=== PATIENT | female | born 1945 ===

== ENCOUNTER → 2017-12-28 | Outpatient (CLI) | payer OTHER, MEDICARE ==
[~2017-12-28] MED LIST: IOPAMIDOL (ISOVUE-300) 100 ML BTL ONE
== END ==
LOC: CIMAGING 11:00
PROVIDERS: ATTEND Family Medicine
DX: R91.8 Other nonspecific abnormal finding of lung field (principal)
CPT/HCPCS: 71260; Q9967

== ENCOUNTER 2018-02-04 05:44 | Inpatient (IN) | payer OTHER, MEDICARE ==
[2018-02-04] MEDS ORDERED: ceFAZolin 2 GM/DEXTROSE 100 ML IV ONE (05:52)
[2018-02-04] MEDS ORDERED: LR 1,000 ML IV ONE (05:53)
[2018-02-04] MEDS ORDERED: LIDOCAINE 1% 2 ML INJ ID PRN (05:53)
--- NOTE | 2018-02-04 06:44 | PDGENHP ---
History and Physical - Chief Complaint lung mass - History of Present Illness 72 yo female with a 3 x 4 cm PET avid left lower lobe lung mass admitted for elective resection. Mass an incidental discovery during abdominal workup for flank pains assoc with a UTI. PFTs preserved. No evidence of metastatic disease. No hx of smoking or unusual occupational exposures. She notices left sided flank pressure during yoga stretches but otherwise feels as healthy as ever. Wt has been stable. No cough or any residual irritative urinary symptoms. History Information - Allergies/Home Medication List Allergies/Adverse Reactions: No Known Allergies Allergy (Verified 01/25/18 10:12) Home Medications: Cholecalciferol Vit D3 [Vitamin D3 (*)] 5,000 units PO DAILY 01/25/18 [Last Taken Unknown] Compounded Estrogen 1 each SL BID 01/25/18 [Last Taken Unknown] Compounded Progesterone 1 each SL BID 01/25/18 [Last Taken Unknown] Compounded Testoserone 1 each SL BID 01/25/18 [Last Taken Unknown] Herbals/Supplements -Info Only 1 ea PO DAILY 01/25/18 [Last Taken Unknown] Vitamin B Complex [Vitamin B Complex (OTC)] 1 each PO DAILY 01/25/18 [Last Taken Unknown] Fish Oil [place]-3 Softgel 01/30/18 [Last Taken Unknown] I have personally reviewed and updated: medical history, social history, surgical history - Past Medical History no pertinent PMH - Surgical History Additional surgical history: breast biopsy - Social History Smoking Status: Never smoked Review of Systems Review of Systems: ROS: 10pt was reviewed & negative except for what was stated in HPI & below Physical Exam Physical Exam: Temp Pulse Resp BP Pulse Ox 36.6 C 64 16 126/77 H 96 02/04/18 06:08 02/04/18 06:08 02/04/18 06:08 02/04/18 06:08 02/04/18 06:08 Constitutional: no apparent distress, appears nourished Eyes: anicteric sclera, other (PER) Ears, Nose, Mouth, Throat: moist mucous membranes, hearing normal Cardiovascular: regular rate and rhythym Respiratory: no respiratory distress Gastrointestinal: soft, non-tender abdomen Genitourinary: no bladder fullness Skin: warm, normal color Musculoskeletal: other (symmetric tone) Neurologic: AAOx3 Psychiatric: interacting appropriately, not anxious Lab Data & Imaging Review Patient ABO/Rh O POSITIVE 01/30/18 17:00 Antibody Screen NEGATIVE 01/30/18 17:00 Imaging Review: CT chest, PET scan, PFTs Visualized and Interpreted imaging results: Yes Assessment & Plan Assessment: Left lower lobe pulmonary mass concerning for malignancy Plan: Left mini thoracotomy with lower lobe resection (extent dictated by path)
[2018-02-04] MEDS ORDERED: BUPIVACAINE/EPI 0.25% 30 ML SDV ONE ×2 (07:00→07:04)
--- NOTE | 2018-02-04 07:01 | PDANEPAE ---
ANE History of Present Illness 72 yo for LLL mass excision ANE Past Medical History - Cardiovascular History Hx Hypertension: No Hx Arrhythmias: No Hx Chest Pain: No Hx Coronary Artery / Peripheral Vascular Disease: No Hx CHF / Valvular Disease: No Hx Palpitations: No - Pulmonary History Hx COPD: No Hx Asthma/Reactive Airway Disease: No Hx Recent Upper Respiratory Infection: No Hx Oxygen in Use at Home: No Hx Sleep Apnea: No Sleep Apnea Screening Result - Last Documented: Negative Pulmonary History Comment: LLL lung mass - no symptoms - Neurologic History Hx Cerebrovascular Accident: No Hx Seizures: No Hx Dementia: No - Endocrine History Hx Diabetes: No - Renal History Hx Renal Disorders: No Renal History Comment: hx of UTI - Liver History Hx Hepatic Disorders: No - Neurological & Psychiatric Hx Hx Neurological and Psychiatric Disorders: No - Cancer History Hx Cancer: No - Congenital Disorder History Hx Congenital Disorders: No - GI History Hx Gastrointestinal Disorders: No - Other Health History Other Health History: wears glasses. had fractured skull as a small child - Chronic Pain History Chronic Pain: No - Surgical History Prior Surgeries: knee scope, 1984. breast bx, age 26. tonsillectomy ANE Review of Systems Review of Systems: - Exercise capacity METS (RN): 5 METS ANE Patient History - Allergies Allergies/Adverse Reactions: No Known Allergies Allergy (Verified 01/25/18 10:12) - Home Medications Home medications: home medication list seen and reviewed Home Medications: Cholecalciferol Vit D3 [Vitamin D3 (*)] 5,000 units PO DAILY 01/25/18 [Last Taken Unknown] Compounded Estrogen 1 each SL BID 01/25/18 [Last Taken Unknown] Compounded Progesterone 1 each SL BID 01/25/18 [Last Taken Unknown] Compounded Testoserone 1 each SL BID 01/25/18 [Last Taken Unknown] Herbals/Supplements -Info Only 1 ea PO DAILY 01/25/18 [Last Taken Unknown] Vitamin B Complex [Vitamin B Complex (OTC)] 1 each PO DAILY 01/25/18 [Last Taken Unknown] Fish Oil [place]-3 Softgel 01/30/18 [Last Taken Unknown] - NPO status NPO Status: no food or drink >8 hours NPO Since - Liquids (Date): 02/04/18 NPO Since - Liquids (Time): 00:30 NPO Since - Solids (Date): 02/03/18 NPO Since - Solids (Time): 19:00 - Smoking Hx Smoking Status: Never smoked - Family Anes Hx Family Hx Anesthesia Complications: none ANE Labs/Vital Signs - Vital Signs Blood Pressure: 126/77 Heart Rate: 64 Respiratory Rate: 16 O2 Sat (%): 96 Height: 5 ft 3 in Weight: 53.07 kg ANE Physical Exam - Airway Neck exam: FROM Mallampati Score: Class 2 Mouth exam: normal dental/mouth exam - Pulmonary Pulmonary: no respiratory distress - Cardiovascular Cardiovascular: regular rate and rhythym - ASA Status ASA Status: II ANE Anesthesia Plan Anesthesia Plan: general endotracheal anesthesia Lines/Monitors: arterial line Specialized Airway: double lumen tube (pt refuses CTE)
[2018-02-04] MEDS ORDERED: MIDAZOLAM 2 MG/2 ML VIAL IVP ONE (07:02)
[2018-02-04] MEDS ORDERED: MIDAZOLAM 2 MG/2 ML VIAL ONE (07:05)
[2018-02-04] MEDS ORDERED: ROCURONIUM 100 MG/10 ML VIAL ONE (07:11)
[2018-02-04] MEDS ORDERED: DEXAMETHASONE 4 MG/ML VIAL ONE (07:11)
[2018-02-04] MEDS ORDERED: fentaNYL 250 MCG/5 ML INJ ONE (07:12)
[2018-02-04] MEDS ORDERED: PROPOFOL/EMULSION 500 MG/50 ML BOTTLE IV ONE ×2 (07:12→08:28)
[2018-02-04] MEDS ORDERED: HYDROmorphONE/DILAUDID 2 MG/ML INJ ONE (08:11)
[2018-02-04] MEDS ORDERED: ONDANSETRON 4 MG/2 ML VIAL ONE ×2 (08:45→09:46)
[2018-02-04] MEDS ORDERED: SUGAMMADEX SODIUM 200 MG/2 ML VIAL IVP ONE (08:45)
[2018-02-04] MEDS ORDERED: PROMETHAZINE HCL 25 MG/ML INJ IVP PRN (09:22)
[2018-02-04] MEDS ORDERED: ONDANSETRON 4 MG/2 ML VIAL IVP PRN (09:22)
[2018-02-04] MEDS ORDERED: fentaNYL 100 MCG/2 ML INJ IVP PRN (09:22)
[2018-02-04] MEDS ORDERED: HYDROmorphONE/DILAUDID 2 MG/ML INJ IVP PRN (09:22)
[2018-02-04] MEDS ORDERED: ALBUTEROL 3 ML DEYVIAL IH PRN (09:22)
[2018-02-04] MEDS ORDERED: NALOXONE HCL 0.4 MG/ML INJ IVP PRN (09:22)
[2018-02-04] MEDS ORDERED: MAGNESIUM HYDROXIDE 30 ML UDCUP PO PRN (09:52)
[2018-02-04] MEDS ORDERED: LACTULOSE 20 GM/30 ML UDCUP PO PRN (09:52)
[2018-02-04] MEDS ORDERED: POLYETHYLENE GLYCOL 3350 17 GM PKT PO PRN (09:52)
--- NOTE | 2018-02-04 09:52 | PDMN ---
Medical Necessity Medical necessity: 72 yo s/p MCG S800 Lobectomy, lung: thoracotomy left lower lobectomy and lymph node dissection, MC IP only
--- NOTE | 2018-02-04 09:52 | POSTANESTH ---
Post Anesthetic Evaluation Cardiovascular Status: Normal, Stable Respiratory Status: Tx Decrease in SpO2 Level of Consciousness/Mental Status: Alert and Oriented Pain Control: Adequate, Prn Tx Ordered Nausea/Vomiting Control: Adequate, Prn Tx Ordered Complications Possibly Related to Anesthesia: None Noted
--- NOTE | 2018-02-04 09:59 | POSTOPPROG ---
Post Op Note Date of Operation: 02/04/18 Surgeon: Tani Perez Assistant: Tara Cortez Anesthesiologist: Codie Anesthesia: GET(General Endotracheal) Pre-op Diagnosis: left lung mass Post-op Diagnosis: left lung mass, possible carcinoid Indication: suspected malignancy Procedure: left mini thoracotomy, left lower lobectomy with LN sampling Inf/Abcess present in the surg proc area at time of surgery?: No EBL: Minimal Drains: Other (28 Fr chest tube) Specimen(s): left lower lobe and multiple regional lymph nodes
[2018-02-04] MEDS ORDERED: fentaNYL 100 MCG/2 ML INJ ONE (10:42)
[2018-02-04] MEDS: KETOROLAC 15 MG/1 ML SDV IVP SCH ×3 (11:06→23:35)
[2018-02-04] MEDS ORDERED: hydrALAZINE 20 MG/ML VIAL IVP PRN (11:07)
[2018-02-04] MEDS ORDERED: METOPROLOL TARTRATE 25 MG TAB PO ONE (11:30)
[2018-02-04] MEDS: ACETAMINOPHEN 325 MG TAB PO SCH ×3 (11:56→23:35)
[2018-02-04] MEDS ORDERED: traMADol 50 MG TAB PO PRN (12:00)
[2018-02-04] MEDS: ceFAZolin 2 GM/DEXTROSE 100 ML IV SCH ×2 (13:57→20:54)
[2018-02-04] MEDS: oxyCODONE IR 5 MG TAB PO PRN ×2 (15:59→20:03)
[2018-02-04] MEDS: ONDANSETRON 4 MG/2 ML VIAL IVP PRN ×2 (16:03→20:02)
[2018-02-04] MEDS: SENNOSIDES/DOCUSATE SODIUM TAB PO SCH (20:02)
[2018-02-04] MEDS: SODIUM CL NASAL 45 ML BTL EACHNARE SCH (20:03)
[2018-02-05] MEDS: ONDANSETRON 4 MG/2 ML VIAL IVP PRN (02:19)
[2018-02-05] MEDS: oxyCODONE IR 5 MG TAB PO PRN ×5 (02:20→23:10)
[2018-02-05] MEDS: ACETAMINOPHEN 325 MG TAB PO SCH ×3 (06:21→17:01)
[2018-02-05] MEDS: KETOROLAC 15 MG/1 ML SDV IVP SCH ×3 (06:21→17:40)
--- NOTE | 2018-02-05 07:08 | SOAPPROG ---
SOAP Progress Note Assessment/Plan: Assessment: POD#1 left mini thoracotomy, left lower lobectomy w LN sampling LLL mass - Suspicious for malignancy and fully resected by lower lobectomy. Await path. Uncomplicated early postop course. Expected volume loss. No air leak. Dissipating CTOP. Adequate pain control w multimodal analgesia. Plan: Pleurovac to waterseal Consider CT removal later today Inc mobility Tx to PCU Dispo - Anticipate home without services tomorrow 02/05/18 07:04 Subjective: Better than yest. OOB last night. Walked to this am. Hopeful for tube out soon. Objective: Vital Signs Temp Pulse Resp BP Pulse Ox 36.9 C 69 20 127/62 H 97 02/04/18 20:00 02/05/18 06:00 02/05/18 06:00 02/05/18 06:00 02/05/18 06:00 Laboratory Results 02/05/18 05:30 02/05/18 05:30 02/04/18 02/05/18 02/06/18 05:59 05:59 05:59 Intake Total 2380 Output Total 1365 Balance 1015 Afeb. VSS. Weaned to room air CXR -> small air space left apex, no undrained effusion CTOP nearing removal criteria Labs as expected Physical Exam - Physical Exam General Appearance: alert, no apparent distress Respiratory: lungs clear (grossly), other (Left thoracot CDI. CT to pleurovac, thin serosang drainage, +tidal, no air leak) Cardiac/Chest: regular rate, rhythm Abdomen: non-tender, soft Skin: normal color, warm/dry Extremities: other (no visible edema) ICD10 Worksheet Patient Problems: Problems Problem Status Onset Mass of lower lobe of left lung Acute S/P lobectomy of lung Acute ~02/04/18 S/P thoracotomy Acute ~02/04/18
[2018-02-05] MEDS: SENNOSIDES/DOCUSATE SODIUM TAB PO SCH ×2 (08:54→20:38)
[2018-02-05] MEDS: ENOXAPARIN 40 MG/0.4 ML SYR SC SCH (08:54)
[2018-02-05] MEDS: SODIUM CL NASAL 45 ML BTL EACHNARE SCH ×2 (08:55→20:50)
--- NOTE | 2018-02-05 09:42 | ASMTCMCOM ---
CM Note CM Note Notes: Pt is 72 yo F here for elective resection of left lower lobe lung mass. PCP Kavitha Rojas. Pt has sister, not in area. Pt active prior to admission. CM to follow. Plan: TBD Date Signed: 02/05/2018 09:42 AM Electronically Signed By:HEIDI Goode
[2018-02-06] MEDS: KETOROLAC 15 MG/1 ML SDV IVP SCH ×2 (00:26→05:31)
[2018-02-06] MEDS: ACETAMINOPHEN 325 MG TAB PO SCH ×5 (00:26→23:03)
[2018-02-06] MEDS: oxyCODONE IR 5 MG TAB PO PRN ×2 (03:20→09:32)
--- NOTE | 2018-02-06 06:52 | SOAPPROG ---
SOAP Progress Note Assessment/Plan: Assessment: POD#2 left mini thoracotomy, left lower lobectomy w LN sampling LLL mass - Suspicious for malignancy and fully resected by lower lobectomy. Await path. Uncomplicated early postop course. Expected volume loss. No air leak. Dissipating CTOP. Adequate pain control w multimodal analgesia. Plan: Chest tube clamping trial. Remove tube this afternoon if repeat pCXR at noon ok. Cont inc activity Dispo - home without services later today or tomorrow 02/06/18 06:50 Subjective: Comfortable. Slept well. Tolerating light activity with relative ease. Objective: Vital Signs Temp Pulse Resp BP Pulse Ox 36.9 C 81 14 137/83 H 95 02/06/18 03:24 02/06/18 03:24 02/06/18 03:24 02/06/18 03:24 02/06/18 03:24 Laboratory Results 02/05/18 05:30 02/05/18 05:30 02/05/18 02/06/18 02/07/18 05:59 05:59 05:59 Intake Total 2380 2130 Output Total 1365 150 120 Balance 1015 1980 -120 CXR -> Unchanged apical volume loss, no undrained effusion. CTOP at removal criteria Physical Exam - Physical Exam General Appearance: alert, no apparent distress Respiratory: lungs clear, other (CT to pleurovac, +tidal, no overt air leak) Cardiac/Chest: regular rate, rhythm Abdomen: non-tender, soft Skin: warm/dry ICD10 Worksheet Patient Problems: Problems Problem Status Onset Mass of lower lobe of left lung Acute S/P lobectomy of lung Acute ~02/04/18 S/P thoracotomy Acute ~02/04/18
[2018-02-06] MEDS: ENOXAPARIN 40 MG/0.4 ML SYR SC SCH (08:07)
[2018-02-06] MEDS: CHOLECALCIFEROL VIT D3 1,000 UNITS TAB PO SCH (08:07)
[2018-02-06] MEDS: VITAMIN B COMPLEX 1 EA CAP/TAB PO SCH (08:07)
[2018-02-06] MEDS: SENNOSIDES/DOCUSATE SODIUM TAB PO SCH ×2 (08:07→23:03)
[2018-02-06] MEDS: SODIUM CL NASAL 45 ML BTL EACHNARE SCH (08:08)
[2018-02-06] MEDS: traMADol 50 MG TAB PO PRN (19:20)
[2018-02-06] MEDS ORDERED: KETOROLAC 15 MG/1 ML SDV IVP ONE (21:00)
[2018-02-07] MEDS: SODIUM CL NASAL 45 ML BTL EACHNARE SCH ×2 (00:06→08:13)
[2018-02-07] MEDS: traMADol 50 MG TAB PO PRN ×2 (01:15→08:09)
[2018-02-07] MEDS: ACETAMINOPHEN 325 MG TAB PO SCH (05:43)
--- NOTE | 2018-02-07 06:13 | SOAPPROG ---
SOAP Progress Note Assessment/Plan: POD #3: left mini thoracotomy, left lower lobectomy w LN sampling LLL mass - Fully resected by lower lobectomy. Await path. Disposition - home today without services. Subjective: Feels well. Pain well-controlled. Denies SOB. Ready to go home. Objective: Vital Signs Temp Pulse Resp BP Pulse Ox 37.1 C 81 14 122/76 H 93 02/07/18 04:00 02/07/18 04:00 02/07/18 04:00 02/07/18 04:00 02/07/18 04:00 Laboratory Results 02/05/18 05:30 02/05/18 05:30 02/06/18 02/07/18 02/08/18 05:59 05:59 05:59 Intake Total 2130 480 Output Total 150 120 Balance 1980 360 Physical Exam - Physical Exam General Appearance: WD/WN, alert, no apparent distress EENT: No scleral icterus (R), No scleral icterus (L) Neck: normal inspection Respiratory: No respiratory distress Cardiac/Chest: regular rate, rhythm Abdomen: non-tender, soft, No distended Skin: normal color, warm/dry Extremities: No pedal edema Neuro/Psych: no motor/sensory deficits, alert, normal mood/affect, oriented x 3 ICD10 Worksheet Patient Problems: Problems Problem Status Onset Mass of lower lobe of left lung Acute S/P lobectomy of lung Acute ~02/04/18 S/P thoracotomy Acute ~02/04/18
[2018-02-07] MEDS ORDERED: IBUPROFEN 200 MG TAB PO PRN (07:00)
[2018-02-07] MEDS: VITAMIN B COMPLEX 1 EA CAP/TAB PO SCH (08:08)
[2018-02-07] MEDS: CHOLECALCIFEROL VIT D3 1,000 UNITS TAB PO SCH (08:08)
[2018-02-07] MEDS: SENNOSIDES/DOCUSATE SODIUM TAB PO SCH (08:09)
[2018-02-07] MEDS: ENOXAPARIN 40 MG/0.4 ML SYR SC SCH (08:09)
[2018-02-07 08:19] VITALS: BP 129/81
--- NOTE | 2018-02-07 08:53 | PDDCSUM ---
Discharge Summary Discharge Summary: ADMISSION DATE: 02/04/18 DISCHARGE DATE: 02/07/18 ADMISSION DIAGNOSES 1. LLL mass DISCHARGE DIAGNOSES 1. LLL mass 2. Typical carcinoid tumor PROCEDURES 02/04/18, Tani Humphrey: left mini-thoracotomy, LLL lobectomy with LN sampling HPI 72F with LLL mass admitted electively for lobectomy. HOSPITAL COURSE BY PROBLEM LIST 1. LLL mass: Fully resected by lower lobectomy. Diagnosis: typical carcinoid tumor, all LNs benign CONDITION Good PERTINENT DISCHARGE CLINICAL INFORMATION Vitals: 129/81, 72 SR, 98% on RA Exam: S1S2, No resp distress, ND, soft, NTP, LE with no edema BL DISPOSITION Home, self-care ACTIVITY Pt was instructed on activity limitations, and which problems to call [facility] with. Please see Discharge Plan in chart for specifics. DISCHARGE MEDICATIONS Continue: Home meds as on admission New: Tramadol prn, Ibuprofen prn, Tylenol prn PENDING STUDIES/LABS 1. CXR prior to surgical follow-up FOLLOW-UP 1. Tani Vitale, 02/19/18, 10:30 AM (further referrals, if needed, to be made)
--- NOTE | 2018-02-07 09:36 | ASDISCHSUM ---
Discharge Information Plan Status:Home with No Needs Medically Cleared to Leave:02/06/2018 Discharge Date:02/06/2018 CM D/C Disposition:Home, Routine, Self-Care ADT D/C Disposition:Home, Routine, Self-Care Projected Discharge Date:02/06/2018 Transportation at D/C: Discharge Delay Reason: Follow-Up Date:02/06/2018 Discharge Slot: Final Diagnosis: Placement Information Patient Contact Information Contact Name:AMY Relationship:Sister Address: Work Phone: City: [facility] Phone: State/Zip Code: Email: Financial Information Financial Class:Medicare Primary Plan Desc:MEDICARE INPATIENT Primary Plan Number:[id number] Secondary Plan Desc:[employer]/MDR SUPPLEMENT Secondary Plan Number:[id number] Assessment Information LACE LACE Length of stay for Answers: 3 days current admission Acuity / Level of Answers: Yes Care: Did the patient have an inpatient admission? # of Emergency department Answers: 0 visits in the last 6 months Score: 6 Date Signed: 02/07/2018 09:34 AM Electronically Signed By:Kelli Sosa RN [facility] CM Progress Note CM Note CM Note Notes: Pt is 72 yo F here for elective resection of left lower lobe lung mass. PCP Kavitha Rojas. Pt has sister, not in area. Pt active prior to admission. CM to follow. Plan: TBD Date Signed: 02/05/2018 09:42 AM Electronically Signed By:HEIDI Goode Case Management Discharge Plan Note Case Management Discharge Discharge Order Complete? Answers: Yes Patient to Obtain Answers: via Family Medications Discharge Comments Notes: 02/07/2018 Case Management Note Pt to discharge independent with follow up as directed. Date Signed: 02/07/2018 09:35 AM Electronically Signed By:Kelli Sosa RN Intervention Information
== END 2018-02-07 10:40 | disposition home or self-care (01) | DRG 165 ==
LOC: F3N 05:44 → F2N 10:34 → F2W 02-05 09:33
PROVIDERS: ADMIT Thoracic Surgery (Cardiothoracic Vascular Surgery); ATTEND Thoracic Surgery (Cardiothoracic Vascular Surgery)
DX: C7A.090 Malignant carcinoid tumor of the bronchus and lung (principal)
CPT/HCPCS: J0690; J1100; J1170; J1650; J1885; J2250; J2270; J2405; J2704; J3010

== ENCOUNTER → 2018-02-19 | Outpatient (CLI) | payer OTHER, MEDICARE | LOC: FIMAGING 12:50 | DX: R91.8 Other nonspecific abnormal finding of lung field (principal) ==